=== PATIENT | female | born 1990 | race Caucasian/White ===

== ENCOUNTER 2020-07-17 15:12 | Emergency (ER) | payer OTHER ==
[~2020-07-17] VITALS: Ht 165.1 cm; Wt 75.7 kg
[2020-07-17] MEDS ORDERED: PREDNISONE20 MG PO (17:53)
== END 2020-07-17 18:05 | disposition home or self-care (01) ==
LOC: ED 15:12
DX: J40 Bronchitis, not specified as acute or chronic (principal); Z91.030 Bee allergy status
CPT/HCPCS: 71045; 81001; 84703; 94640; 94664; 99285-25; C9803; J1100; U0003

== ENCOUNTER 2022-02-25 21:07 | Emergency (ER) | payer OTHER ==
[~2022-02-25] VITALS: Ht 165.1 cm; Wt 75.3 kg
[~2022-02-25 21:07] MED LIST: PREDNISONE20 MG PO
[2022-02-26] MEDS ORDERED: ONDANSETRON HCL4 MG PO (01:15)
[2022-02-26] MEDS ORDERED: PRENATAL MULTI1 EAC2 PO (01:15)
== END 2022-02-26 01:31 | disposition home or self-care (01) ==
LOC: ED 21:07
DX: O21.9 Vomiting of pregnancy, unspecified (principal); Z3A.08 8 weeks gestation of pregnancy; Z91.030 Bee allergy status; Z91.048 Other nonmedicinal substance allergy status
CPT/HCPCS: 36415; 76801; 76817; 80053; 81001; 83690; 84702; 84703; 85025; 86900; 86901; 96361; 96374; 96375; 99284-25; A9270; J0780; J3010; J7121

== ENCOUNTER 2022-09-27 00:08 | Inpatient (IN) | payer OTHER ==
[~2022-09-27] VITALS: Ht 167.6 cm; Wt 74.8 kg
[~2022-09-27 00:08] MED LIST changes: +ONDANSETRON HCL4 MG PO; +PRENATAL MULTI1 EAC2 PO
[2022-09-27 00:50] VITALS: BP 139/77
--- NOTE | 2022-09-27 12:36 | PR ---
[facility] [address] [facility] [place], [place] [address] Signed Progress Notes IP Datetime Report Generated by CPN: 09/27/2022 12:36 PROGRESS NOTES: [id number] Impression: Normal Progression of Labor; Reassuring Heart Rate Plan: Continue Present Management VITAL SIGNS: [id number] Vital Signs: Reviewed; Within Normal Limits EXAM: [id number] Dilatation: 2.0 Effacement: 90 Station: -3 Contractions: q1 - 3.5 MEMBRANES: [id number] Comments: Second IV access being established by PACU nurses, under US guidance, with difficulty. Exam deferred. Pt reports contractions are slowly becoming stronger. Anticipate recheck at 1400. FETUS A: [id number] FHR Baseline: 125 Variability: Moderate 6-25bpm Accelerations: 15X15 FHR Category: Category I Presentation: Vertex Comments on Fetus A: No evidence of acidemia FETUS B: [id number] Signing Physician: Krystina Salvador DO Copies: ~ *Electronically Signed* 09/27/22 1236 KRYSTINA SALVADOR DO PATIENT NAME: ORALIA ORLANDO PROGRESS NOTE DATE OF : 91 PHYSICIAN: KRYSTINA SALVADOR DO RPT #: [id number] REPORT IS CONFIDENTIAL AND NOT TO BE RELEASED WITHOUT AUTHORIZATION
--- NOTE | 2022-09-27 14:18 | PR ---
[facility] [address] [place], [place] [address] Signed Progress Notes IP Datetime Report Generated by CPN: 09/27/2022 14:17 PROGRESS NOTES: [id number] Impression: Normal Progression of Labor; Reassuring Heart Rate Plan: Continue Present Management VITAL SIGNS: [id number] Vital Signs: Reviewed; Within Normal Limits EXAM: [id number] Dilatation: 3.0 Effacement: 70 Station: -3 Contractions: q1 - 3.5 MEMBRANES: [id number] Membranes Status: Intact Comments: Pt feeling contractions "more in the front" instead of side. Reviewed next steps, in particular amniotomy vs low-dose pitocin. Pt strongly prefers low-dose pitocin, discussed if contractions are not tracing well or if concern for tachysystole may need to perform amniotomy with placement of IUPC. Pt verbalizes understanding. FETUS A: [id number] FHR Baseline: 125 Variability: Moderate 6-25bpm Accelerations: 15X15 FHR Category: Category I Presentation: Vertex Comments on Fetus A: No evidence of acidemia FETUS B: [id number] Signing Physician: Krystina Salvador DO Copies: ~ *Electronically Signed* 09/27/22 1417 KRYSTINA SALVADOR DO PATIENT NAME: ORALIA ORLANDO PROGRESS NOTE DATE OF : 91 PHYSICIAN: KRYSTINA SALVADOR DO [facility] #: [id number] REPORT IS CONFIDENTIAL AND NOT TO BE RELEASED WITHOUT AUTHORIZATION
--- NOTE | 2022-09-27 18:05 | PR ---
[facility] [address] [place], [place] [address] Signed Progress Notes IP Datetime Report Generated by CPN: 09/27/2022 18:05 PROGRESS NOTES: [id number] Impression: Normal Progression of Labor; Reassuring Heart Rate Procedures: Artificial ROM Plan: Continue Present Management VITAL SIGNS: [id number] Vital Signs: Reviewed; Within Normal Limits EXAM: [id number] Dilatation: 4.0 Effacement: 80 Station: -3 Contractions: q1 - 3.5 MEMBRANES: [id number] Membranes Status: Ruptured Comments: Progressing well on pitocin, pt breathing through contractions. Amniotomy performed yielding copious amount of clear fluid. hand palpable initially on contraction following rupture, reduced, no longer palpable on recheck after 2 additional contractions. FETUS A: [id number] FHR Baseline: 125 Variability: Moderate 6-25bpm Accelerations: 15X15 FHR Category: Category I Presentation: Vertex Comments on Fetus A: No evidence of acidemia FETUS B: [id number] Signing Physician: Krystina Salvador DO Copies: ~ *Electronically Signed* 09/27/22 1807 KRYSTINA SALVADOR DO PATIENT NAME: ORALIA ORLANDO PROGRESS NOTE DATE OF : 91 PHYSICIAN: KRYSTINA SALVADOR #: [id number] REPORT IS CONFIDENTIAL AND NOT TO BE RELEASED WITHOUT AUTHORIZATION
--- NOTE | 2022-09-28 08:15 | PR ---
[facility] [address] [place], [place] [address] Signed PP Progress Notes Datetime Report Generated by CPN: 09/28/2022 08:15 SUBJECTIVE: [id number] Pain: Within Normal Limits Nausea/Vomiting: Denies Flatus: Yes Vital Signs: [id number] Vital Signs: Reviewed; Within Normal Limits EXAM: Ongoing Cardiovascular: Normal Respiratory: Normal Abdomen/Uterus: Normal Lochia: Normal Breasts: Normal Extremities: Normal Progress: Normal Exam Comments: NAD RRR No dyspnea/ retractions Abd SNTND, FF @ U Ext: right calf tender to palpation, +Mariela's, negative mariela's on left without TTP. Trace edema. IMPRESSION/PLAN/PROCEDURES: [id number] Impression: Normal Progression Plan: Continue Present Management Progress Notes: PPD#1 s/p -MIOL for FGR -Progressing well : ambulating, voiding, tolerating regular diet, lochia light, pain well-controlled with oral. Denies difficulties, anticipate IUD for contraception. -hgb 9.1 from 10.8, risks/ benefits/ alternatives for IV iron infusion discussed, pt elected to proceed NG/CT missed during care, collected on urine with patient consent today Anticipate DC to home tomorrow Signing Physician: Krystina Salvador DO *Electronically Signed* 09/28/22 0815 KRYSTINA SALVADOR DO PATIENT NAME: ORALIA ORLANDO PROGRESS NOTE DATE OF : 91 PHYSICIAN: KRYSTINA SALVADOR DO RPT #: [id number] REPORT IS CONFIDENTIAL AND NOT TO BE RELEASED WITHOUT AUTHORIZATION [facility] [address] [place] [id number] Signed Copies: ~ *Electronically Signed* 09/28/22 0815 KRYSTINA SALVADOR DO PATIENT NAME: ORALIA ORLANDO PROGRESS NOTE DATE OF : 91 PHYSICIAN: KRYSTINA SALVADOR DO RPT #: [id number] REPORT IS CONFIDENTIAL AND NOT TO BE RELEASED WITHOUT AUTHORIZATION
--- NOTE | 2022-09-29 08:19 | PR ---
[facility] [address] [facility] [place], [place] [address] Signed PP Progress Notes Datetime Report Generated by CPN: 09/29/2022 08:19 SUBJECTIVE: [id number] Pain: Within Normal Limits Nausea/Vomiting: Denies Flatus: Yes Vital Signs: [id number] Vital Signs: Reviewed; Within Normal Limits EXAM: Ongoing Cardiovascular: Normal Respiratory: Normal Abdomen/Uterus: Normal Lochia: Normal Breasts: Normal Extremities: Normal Progress: Normal Exam Comments: NAD RRR No dyspnea/ retractions Abd SNTND, FF @ U Ext: right calf tender to palpation, +Mariela's, negative mariela's on left without TTP. Trace edema. IMPRESSION/PLAN/PROCEDURES: [id number] Impression: Normal Progression Plan: Discharge Procedures: None Progress Notes: Doing well, without complaint. Ready to go home. Signing Physician: Oscar Sutherland MD Copies: ~ *Electronically Signed* 09/29/22818 OSCAR SUTHERLAND MD PATIENT NAME: ORALIA ORLANDO PROGRESS NOTE DATE OF : 91 PHYSICIAN: OSCAR SUTHERLAND MD RPT #: [id number] REPORT IS CONFIDENTIAL AND NOT TO BE RELEASED WITHOUT AUTHORIZATION
== END 2022-09-29 10:30 | disposition home or self-care (01) | DRG 806 ==
LOC: FBC 00:08
PROVIDERS: ADMIT Obstetrics & Gynecology; ATTEND General Practice
PROC: 10E0XZZ Delivery of Products of Conception, External Approach (ICD-10-PCS; principal; 2022-09-27)
PROC: 3E033VJ Introduction of Other Hormone into Peripheral Vein, Percutaneous Approach (ICD-10-PCS; 2022-09-27)
PROC: 10907ZC Drainage of Amniotic Fluid, Therapeutic from Products of Conception, Via Natural or Artificial Opening (ICD-10-PCS; 2022-09-27)
PROC: 3E0P7VZ Introduction of Hormone into Female Reproductive, Via Natural or Artificial Opening (ICD-10-PCS; 2022-09-27)
PROC: 00HU33Z Insertion of Infusion Device into Spinal Canal, Percutaneous Approach (ICD-10-PCS; 2022-09-27)
PROC: 3E0R3BZ Introduction of Anesthetic Agent into Spinal Canal, Percutaneous Approach (ICD-10-PCS; 2022-09-27)
DX: O36.5930 Maternal care for other known or suspected poor fetal growth, third trimester, not applicable or unspecified (principal); D62 Acute posthemorrhagic anemia; Z37.0 Single live birth; O99.324 Drug use complicating childbirth; O99.02 Anemia complicating childbirth; F12.90 Cannabis use, unspecified, uncomplicated; Z3A.38 38 weeks gestation of pregnancy; Z87.891 Personal history of nicotine dependence; Z67.20 Type B blood, Rh positive
CPT/HCPCS: 36415; 85027; 85060; 86850; 86900; 86901; 93971; A9270; J0690; J2590; Q0138